=== PATIENT | female | born 1945 | race Caucasian/White ===

== ENCOUNTER → 2018-02-22 09:19 | Outpatient (CLI) | payer MEDICARE, OTHER, SELFPAY ==
--- NOTE | 2018-02-22 09:22 | DI.RAD.S_ITS ---
PROCEDURE: XR ACUTE ABDOMEN SERIES INDICATIONS: abdominal pain TECHNIQUE: One view chest and two views of the abdomen were acquired. COMPARISON: None. FINDINGS: Surgical changes and devices: None. Chest: Lungs are clear. Heart size is normal. No pleural effusions. No pneumoperitoneum. Abdomen: Large amount of stool projects throughout a prominent colon to the rectum. Bowel gas pattern is nonobstructive. Grossly no abnormal calculi. Circular structure projects over the lower pelvis which may represent a pessary. Bones: No suspicious bony lesions. IMPRESSION: Large amount of stool in a patulous colon. Bowel gas pattern is nonobstructive. Dictated by: Guille Mercado M.D. on 02/22/2018 at 9:00 Approved by: Guille Mercado M.D. on 02/22/2018 at 9:02
== END ==
PROVIDERS: PCP Family Medicine; Visit Provider Family Medicine
DX: R10.9 Unspecified abdominal pain (principal)
CPT/HCPCS: 74022

== ENCOUNTER → 2018-12-24 14:39 | Outpatient (CLI) | payer MEDICARE, OTHER, SELFPAY ==
--- NOTE | 2018-12-24 14:44 | DI.RAD.S_ITS ---
PROCEDURE: XR LUMBAR SPINE 2-3V INDICATIONS: Bilateral R>L hip/lower back pain TECHNIQUE: 3 views of the lumbar spine were acquired. COMPARISON: None. FINDINGS: Bones: 5 [id number] vertebrae are present. There is mild, grade 1 anterolisthesis of L4 on L5. Multilevel disc space narrowing and endplate osteophyte formation is present. Facet hypertrophy throughout the mid and lower lumbar spine is present. normal bony alignment. No vertebral body compression fractures. No suspicious bony lesions. Soft tissues: Overlying bowel gas pattern is normal. No suspicious soft tissue calcifications. IMPRESSION: Multilevel degenerative disc and facet disease. No acute fracture. No osseous lesion. If symptoms and/or clinical suspicion for pathology persist, further assessment with repeat, or advanced imaging (e.g., CT, MRI, or bone scan) may be helpful for further assessment. Dictated by: Amarilys Cassidy M.D. on 12/24/2018 at 15:41 Approved by: Amarilys Cassidy M.D. on 12/24/2018 at 15:41
--- NOTE | 2018-12-24 14:44 | DI.RAD.S_ITS ---
PROCEDURE: XR HIP W PEL IF DONE LT MIN 4V INDICATIONS: Bilateral R>L hip/lower back pain TECHNIQUE: AP pelvis with lateral view(s) of the bilateral hip(s). COMPARISON: None. FINDINGS: Bones: No fractures or dislocations. Pelvic ring appears intact. No suspicious bony lesions. Soft tissues: The visualized bowel gas pattern is normal. No suspicious soft tissue calcifications. IMPRESSION: No acute fracture. No osseous lesion. If symptoms and/or clinical suspicion for pathology persist, further assessment with repeat, or advanced imaging (e.g., CT, MRI, or bone scan) may be helpful for further assessment. Dictated by: Amarilys Cassidy M.D. on 12/24/2018 at 15:40 Approved by: Amarilys Cassidy M.D. on 12/24/2018 at 15:41
--- NOTE | 2018-12-24 14:44 | DI.RAD.S_ITS ---
PROCEDURE: XR SACRUM COCCYX MIN 2V INDICATIONS: Bilateral R>L hip/lower back pain TECHNIQUE: 3 views of the sacrum and coccyx acquired. COMPARISON: None. FINDINGS: Bones: No fractures or dislocations. No suspicious bony lesions. Mild periarticular osteophyte formation of the sacroiliac joints. No evidence of ankylosis. Soft tissues: Visualized bowel gas pattern is normal. No suspicious soft tissue densities. 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 Dictated by: Amarilys Cassidy M.D. on 12/24/2018 at 15:41 Approved by: Amarilys Cassidy M.D. on 12/24/2018 at 15:45
== END ==
PROVIDERS: Family Provider Family Medicine; PCP Family Medicine; Visit Provider Nurse Practitioner
DX: M25.551 Pain in right hip (principal); M25.552 Pain in left hip; M54.5 Low back pain; M51.36 Other intervertebral disc degeneration, lumbar region; M47.898 Other spondylosis, sacral and sacrococcygeal region
CPT/HCPCS: 72100; 72220; 73522

== ENCOUNTER → 2019-03-25 07:04 | Outpatient (CLI) | payer MEDICARE, OTHER, SELFPAY ==
[2019-03-25 07:58] LABS: Add Manual Diff / Slide Review NO; Basophils Absolute Auto 0 /uL (0-100); Basophils Percent Auto 0.8 % (0-2); Eosinophils Absolute Auto 100 /uL (0-450); Eosinophils Percent Auto 1.7 % (2-4); Hematocrit 39.6 % (36-46); Hemoglobin 13.3 g/dL (12.0-16.0); Lymphocytes Absolute Auto 1900 /uL (1100-4500); Mean Corpuscular HGB Conc 33.5 % (30-36); Mean Corpuscular Hemoglobin 29.5 PG (26-34); Monocytes Absolute Auto 500 /uL (0-900); Neutrophils Absolute Auto 2300 /uL (1500-7000); Neutrophils Percent Auto 48.5 % (50-75); Platelet Count 222 X10^3/uL (150-400); Red Cell Distribution Width 18.1 % (11.6-14.8); White Blood Cell Count 4.8 X10^3/uL (4.5-11.0)
[2019-03-25 08:12] LABS: Alanine Aminotransferase 20 IU/L (9-52); Albumin 4.1 g/dL (3.5-5.0); Albumin Globulin Ratio 1.6 (1.0-2.8); Alkaline Phosphatase 71 U/L (38-126); Aspartate Aminotransferase 25 IU/L (14-36); BUN Creatinine Ratio 17.5 (6-22); Bilirubin Total 0.5 mg/dL (0.2-1.3); Blood Urea Nitrogen 14 mg/dL (7-17); Calcium 9.5 mg/dL (8.4-10.2); Carbon Dioxide 33 mmol/L (22-32); Chloride 101 mmol/L (98-107); Cholesterol 261 mg/dL (140-199); Estimated Glomerular Filt Rate > 60.0 mL/min (>60); Globulin 2.6 g/dL (1.7-4.1); Glucose 88 mg/dL (80-110); HDL Cholesterol 74 mg/dL (40-60); HEMOLYSIS < 15 (0-50); LDL Cholesterol Calculated 164 mg/dL (<100); Potassium 4.3 mmol/L (3.4-5.1); Sodium 140 mmol/L (137-145); Total Protein 6.7 g/dL (6.3-8.2); Triglycerides 115 mg/dL (35-150)
== END ==
PROVIDERS: PCP Family Medicine; Visit Provider Family Medicine
DX: E78.5 Hyperlipidemia, unspecified (principal); I10 Essential (primary) hypertension; Z00.00 Encounter for general adult medical examination without abnormal findings
CPT/HCPCS: 36415; 80053; 80061; 85025

== ENCOUNTER 2019-04-17 16:36 | Emergency (ER) | payer OTHER, MEDICARE, SELFPAY ==
[2019-04-17 16:41] VITALS: BP 201/107; PULSE 72; RESP 14; TEMP 36.2; O2SAT 98; BMI 25.6
--- NOTE | 2019-04-17 19:28 | ED.WOUNDLAC ---
HPI - Wound/Laceration General Chief Complaint: Wound/Laceration Stated Complaint: DOG BITE TO FACE Time Seen by Provider: 04/17/19 19:28 Source: patient Mode of arrival: ambulatory Limitations: no limitations History of Present Illness HPI narrative: The patient sustained a laceration to her lower lip. She also has superficial injuries to both hands. Her 15 lb dog was attacked by a larger dogs. Her dog in trying to escape the large dogs bit her and agitation. This incident happened about 4:30 p.m. today. Her dog required surgery. The patient is now coming in for her evaluation. She has abrasion contusion to the lower lip. She has no intraoral injury. She has no other facial injury or neck injury. She has injuries to both hands is noted. Her tetanus is up-to-date. Related Data Home Medications Medication Instructions Recorded Confirmed Fish Oil (Fish Oil 500 MG Softgel) 500 mg PO #0 01/11/12 04/02/19 Resmed Airsense 10 CPAP #1 ea 02/06/19 04/02/19 diazepam 5 mg PO BEDTIME 04/17/19 04/17/19 triamterene-hydrochlorothiazid 0.5 tab PO DAILY 04/17/19 04/17/19 Previous Rx's Medication Instructions Recorded acyclovir 400 mg PO BID #60 tab 02/20/17 estradiol [Estring] 0.0075 mg VAGINAL Q 3 MONTHS #1 icr 09/12/17 sumatriptan 25 mg tablet 25 mg PO Q2H PRN #10 tab 02/08/18 fluoxetine 10 mg capsule 10 mg PO DAILY #30 cap 12/06/18 amitriptyline 10 mg tablet 5 mg PO DAILY #30 tab 03/18/19 Allergies Allergy/AdvReac Type Severity Reaction Status Date / Time No Known Drug Allergies Allergy Verified 04/17/19 16:41 Review of Systems Review of Systems ROS Unobtainable: All systems reviewed & are unremarkable except as noted in HPI and below Constitutional Denies fever(s), Denies lethargy and Denies weakness Eyes Comments: No injuries ENT Comments: ENT normal other than a lip laceration. Cardiovascular Denies chest pain Integumentary/Breasts Comments: Injuries to both hands from the bites Neurologic Denies weakness [facility] Medical History Herpes simplex with unspecified complication (Acute 03/24/14) Essential hypertension (Acute) Other and unspecified hyperlipidemia (Acute 02/29/12) IT band syndrome (Chronic) Insomnia (Chronic) Depression (Chronic 02/29/12) Cataract of both eyes (Resolved 06/10/14) Osteoporosis (Chronic 09/22/15) Obstructive sleep apnea syndrome (Chronic 01/04/17) Ankle pain (Chronic 2011) Anxiety (Chronic) Foot pain (Chronic) Hearing loss (Chronic) Hyperlipidemia (Chronic) Hypertension (Chronic) Migraines (Chronic ~1954) Osteoarthritis (Chronic ~1999) Osteopenia (Chronic ~2004) Shoulder pain (Chronic) Sleep apnea (Chronic 1994) Chicken pox (Resolved 1946) HSV-2 infection (Resolved ~1989) Hemorrhoids (Resolved ~1979) History of one miscarriage (Resolved 1982) History of rabies vaccination (Resolved) Measles (Resolved) Melanoma of nose (Resolved 2014) Mumps (Resolved ~1949) Rubella (Resolved) Surgical History Anesthesia (Resolved) History of cataract removal with insertion of prosthetic lens (Resolved 08/2014) History of cataract removal with insertion of prosthetic lens (Resolved 03/2015) History of ectopic (Resolved ~1979) History of melanoma excision (Resolved ~03/2015) Status post appendectomy (Resolved 03/1987) Status post colonoscopy (Resolved 05/2009) Status post dilation and curettage (Resolved 2005) Status post tubal ligation (Resolved 1983) Family History Grandfather Heart disease Grandmother Heart disease Brother COPD (chronic obstructive pulmonary disease) Father Colorectal cancer Mother No problems noted. Grandfather No problems noted. Grandmother No problems noted. Sister Rheumatoid arthritis Lung infection Social History Smoking Status: Never smoker Family History Grandfather Heart disease Grandmother Heart disease Brother COPD (chronic obstructive pulmonary disease) Father Colorectal cancer Mother No problems noted. Grandfather No problems noted. Grandmother No problems noted. Sister Rheumatoid arthritis Lung infection Social History Smoking Status: Never smoker Exam Initial Vital Signs Initial Vital Signs: Vital Signs Temperature 97.2 F L 04/17/19 16:41 Pulse Rate 72 04/17/19 16:41 Respiratory Rate 14 04/17/19 16:41 Blood Pressure 201/107 H 04/17/19 16:41 Pulse Oximetry 98 04/17/19 16:41 Const General: cooperative, healthy appearing and comfortable [facility] Head: normal to inspection, normocephalic and laceration (Lower lip injury) Mouth: lip abnormal (Superficial contusion/abrasion to the left mid lip.) and other (1cm vertical laceration to the lower mid lip, crossing the vermilion border) Eyes General: appearance normal, both eyes and all related structures Neck Neck: normal visual inspection Procedures Laceration Repair Laceration 1: Site: lip (Mid lower lip, crossing the vermilion border) Size (cm): 1 Description: linear Depth: simple, single layer Local Anesthetic: lidocaine 1% Amount of anesthesia used (mL): 1 Pre-repair: wound explored and irrigated extensively Skin layer closed with: nylon Size (cm): 5-0 Number of sutures: 1 Course Course Narrative: The patient has had a traumatic day. Her systolic blood pressure remains elevated. The blood pressure was discussed with her by her nurse. She tells the nurse that she monitor blood pressure at home and is generally 110-120 systolic. She is advised to follow up her doctor if her blood pressure remains elevated at home. Orders Ordered: Discontinued Medications Bacitracin (Bacitracin) 1 applic TOP NOW ONE Stop: 04/17/19 20:02 Vital Signs - 8 hr 04/17/19 16:41 04/17/19 19:40 Temperature 97.2 F L Pulse Rate 72 62 Respiratory Rate 14 16 Blood Pressure 201/107 H Blood Pressure [Left Arm] 201/108 H Pulse Oximetry 98 99 Discharge Plan Departure Patient Disposition: Home Clinical Impression: Elevated blood pressure reading Lip laceration Qualifiers: Encounter type: initial encounter Qualified Code(s): S01.511A - Laceration without foreign body of lip, initial encounter Discharge Date/Time: 04/17/19 20:24 Interventions: ED Discharge Assessment Last Done: 04/17/19 20:23 Instructions: DI for Laceration Repair Activity Restrictions/Additional Instructions: Take Tylenol or Advil as necessary for pain. Follow-up with her doctor about 5 days for suture removal. Follow up with your doctor if the blood pressure remains elevated. Return to ER as necessary. Prescriptions: No Action Fish Oil (Fish Oil 500 MG Softgel) 500 mg PO Qty: 0 RF: 0 acyclovir 400 MG tablet 400 mg PO BID Qty: 60 RF: 2 estradiol [Estring] 1 EACH ring 0.0075 mg Vaginal Q 3 MONTHS Qty: 1 RF: 3 amitriptyline 10 mg tablet 5 mg PO DAILY Qty: 30 RF: 0 sumatriptan succinate 25 mg tablet 25 mg PO Q2H PRN (Reason: migraine headache) Qty: 10 RF: 0 fluoxetine 10 mg capsule 10 mg PO DAILY Qty: 30 RF: 4 triamterene-hydrochlorothiazid 37.5-25 mg tablet 0.5 tab PO DAILY RF: 0 diazepam 5 mg tablet 5 mg PO BEDTIME RF: 0 Resmed Airsense 10 CPAP Qty: 1 RF: 0 Referrals: Fatuma Rosales DO [Primary Care Provider] -
[2019-04-17 19:40] VITALS: BP 201/108; PULSE 62; RESP 16; O2SAT 99
--- NOTE | 2019-04-17 19:44 | PC.NURSE ---
Dog bite to left lower lip. Pt UTD on immunizations, states dog is hers and is UTD on vaccinations. Dr. Wu at bedside for suture repair.
== END 2019-04-17 20:24 | disposition home or self-care (01) ==
PROVIDERS: Emergency Provider Emergency Medicine; PCP Family Medicine
DX: S01.511A Laceration without foreign body of lip, initial encounter (principal); R03.0 Elevated blood-pressure reading, without diagnosis of hypertension; W54.0XXA Bitten by dog, initial encounter
CPT/HCPCS: 12011; 99283

== ENCOUNTER → 2019-07-30 15:33 | Outpatient (CLI) | payer MEDICARE, OTHER, SELFPAY ==
--- NOTE | 2019-07-30 15:34 | DI.MG.S_ITS ---
BILATERAL DIGITAL SCREENING MAMMOGRAM 3D/2D WITH CAD: 07/30/2019 CLINICAL: Routine screening. Comparison is made to exams dated: 04/25/2017 mammogram, 08/30/2015 mammogram, and 08/14/2014 mammogram - [facility]. The tissue of both breasts is heterogeneously dense. This may lower the sensitivity of mammography. Current study was also evaluated with a Computer Aided Detection (CAD) system. There is a possible developing 0.4 cm oval low density asymmetry in the right breast anterior depth lateral region seen on the craniocaudal view only. This is more prominent. No other significant masses, calcifications, or other findings are seen in either breast. IMPRESSION: INCOMPLETE: NEEDS ADDITIONAL IMAGING EVALUATION The possible developing 0.4 cm oval low density asymmetry in the right breast resembles a lymph node and is indeterminate. Additional views with possible ultrasound are recommended. This exam was interpreted at Station ID: [id number]. NOTE: For mammograms, a report in lay terms will be sent to the patient. Approximately 15% of breast malignancies will not be visualized mammographically. In the management of a palpable breast mass, a negative mammogram must not discourage biopsy of a clinically suspicious lesion. Electronically Signed By: Benito Medina M.D. aty/:07/30/2019 17:04:08 letter sent: Additional Imaging Needed ACR BI-RADS Category 0: Incomplete 3340F
== END ==
PROVIDERS: PCP Family Medicine; Visit Provider Family Medicine
DX: Z12.31 Encounter for screening mammogram for malignant neoplasm of breast (principal)
CPT/HCPCS: 77063; 77067

== ENCOUNTER → 2019-08-21 14:40 | Outpatient (CLI) | payer MEDICARE, OTHER, SELFPAY ==
--- NOTE | 2019-08-21 | DI.MG.S_ITS ---
UNILATERAL RIGHT DIGITAL DIAGNOSTIC MAMMOGRAM 3D/2D WITH ADDITIONAL VIEWS: 08/21/2019 CLINICAL: Additional evaluation requested from prior study. Comparison is made to exams dated: 07/30/2019 mammogram, 04/25/2017 mammogram, and 08/30/2015 mammogram - [facility]. The tissue of right breast is heterogeneously dense. This may lower the sensitivity of mammography. There is a 0.6 cm oval low density focal asymmetry in the right breast anterior depth lateral region. No other significant masses or calcifications are seen in the breast. IMPRESSION: INCOMPLETE: NEEDS ADDITIONAL IMAGING EVALUATION Focal asymmetry in the right lateral breast is indeterminate. An ultrasound is recommended and will immediately follow. This exam was interpreted at Station ID: [id number]. NOTE: For mammograms, a report in lay terms will be sent to the patient. Approximately 15% of breast malignancies will not be visualized mammographically. In the management of a palpable breast mass, a negative mammogram must not discourage biopsy of a clinically suspicious lesion. Electronically Signed By: James Edwards M.D. slc/:08/21/2019 16:16:54 ACR BI-RADS Category 0: Incomplete 3340F
--- NOTE | 2019-08-21 14:43 | DI.US.S_ITS ---
LIMITED ULTRASOUND OF RIGHT BREAST: 08/21/2019 CLINICAL: Patient returns today to evaluate a density in the right breast. Comparison is made to exams dated: 08/21/2019 mammogram, 07/30/2019 mammogram, 04/25/2017 mammogram, 08/30/2015 mammogram, 08/14/2014 mammogram, and 07/31/2013 mammogram - [facility]. Color flow and real-time ultrasound of the right breast 9 o'clock region were performed. Colon scale images of the real-time examination were reviewed. There is a 0.3 cm x 0.5 cm x 0.4 cm oval bilobed cyst with a septated internal wall in the right breast at 9 o'clock 3 cm from the nipple. This oval cyst is hypoechoic with an echogenic boundary and posterior acoustic enhancement. This correlates with mammography findings. Color flow imaging demonstrates that there is no vascularity present. There also is a 2.3 cm x 1 cm x 1.1 cm oval enlarged lymph node with a circumscribed margin in the right axilla. This oval enlarged lymph node displays fatty hilum. No cortical thickening. Cortex measures 0.1 cm. IMPRESSION: PROBABLY BENIGN Complicated cyst in the right breast at 9 o'clock measuring 0.5 mm and corresponding to the focal asymmetry seen on mammogram is probably benign. Prominent lymph node in the right axilla is probably benign. A follow-up mammogram and an ultrasound in 6 months is recommended to demonstrate stability. Recommendation was conveyed to the patient by the director of market research. This exam was interpreted at Station ID: [id number]. Electronically Signed By: James Edwards M.D. [facility] [place]:08/21/2019 16:26:25 letter sent: Followup Recommended Ultrasound BI-RADS: 3 Probably benign
== END ==
PROVIDERS: PCP Family Medicine; Visit Provider Family Medicine
DX: R92.8 Other abnormal and inconclusive findings on diagnostic imaging of breast (principal); N60.01 Solitary cyst of right breast; R59.0 Localized enlarged lymph nodes
CPT/HCPCS: 76642; 77065; G0279

== ENCOUNTER → 2019-11-27 07:17 | Outpatient (CLI) | payer MEDICARE, OTHER, SELFPAY ==
[2019-11-27 09:21] LABS: Blood Urea Nitrogen 23 mg/dL (7-17); Calcium 9.3 mg/dL (8.4-10.2); Carbon Dioxide 32 mmol/L (22-32); Chloride 98 mmol/L (98-107); Estimated Glomerular Filt Rate 54.3 mL/min (>60); Glucose 94 mg/dL (80-110); HEMOLYSIS < 15 (0-50); Potassium 3.5 mmol/L (3.4-5.1); Sodium 140 mmol/L (137-145)
== END ==
PROVIDERS: PCP Family Medicine; Referring Provider Family Medicine; Visit Provider Family Medicine
DX: I10 Essential (primary) hypertension (principal)
CPT/HCPCS: 36415; 80048

== ENCOUNTER → 2020-02-03 10:12 | Outpatient (CLI) | payer MEDICARE, OTHER, SELFPAY ==
--- NOTE | 2020-02-03 10:13 | DI.MG.S_ITS ---
UNILATERAL RIGHT DIGITAL DIAGNOSTIC MAMMOGRAM 3D/2D SHORT-TERM FOLLOW-UP: 02/03/2020 CLINICAL: Patient returns for a 6 month follow up of the right breast. Comparison is made to exams dated: 08/21/2019 mammogram, 07/30/2019 mammogram, and 04/25/2017 mammogram - [facility]. The tissue of right breast is heterogeneously dense. This may lower the sensitivity of mammography. The oval low density asymmetry in the right breast anterior depth lateral region seen on the craniocaudal view on the prior mammogram is no longer seen. No other significant masses or calcifications are seen in the breast. IMPRESSION: NEGATIVE There is no mammographic evidence of malignancy. Return to annual mammogram screening schedule is recommended. This exam was interpreted at Station ID: [id number]. NOTE: For mammograms, a report in lay terms will be sent to the patient. Approximately 15% of breast malignancies will not be visualized mammographically. In the management of a palpable breast mass, a negative mammogram must not discourage biopsy of a clinically suspicious lesion. Electronically Signed By: Mindi Maldonado M.D. lk/:02/03/2020 10:43:07 letter sent: Normal Exam ACR BI-RADS Category 1: Negative 3341F
== END ==
PROVIDERS: PCP Family Medicine; Referring Provider Family Medicine; Visit Provider Family Medicine
DX: R92.8 Other abnormal and inconclusive findings on diagnostic imaging of breast (principal); N64.89 Other specified disorders of breast
CPT/HCPCS: 77065; G0279

== ENCOUNTER → 2020-06-03 14:42 | Outpatient (CLI) | payer MEDICARE, OTHER, SELFPAY | PROVIDERS: PCP Family Medicine; Referring Provider Family Medicine; Visit Provider Family Medicine | DX: M81.0 Age-related osteoporosis without current pathological fracture (principal); Z78.0 Asymptomatic menopausal state; Z82.62 Family history of osteoporosis | CPT/HCPCS: 77080 ==

== ENCOUNTER → 2020-10-07 15:08 | Outpatient (CLI) | payer MEDICARE, OTHER, SELFPAY ==
--- NOTE | 2020-10-07 15:10 | DI.RAD.S_ITS ---
PROCEDURE: XR LUMBAR SPINE 2-3V INDICATIONS: lower back pain no trauma TECHNIQUE: 3 views of the lumbar spine were acquired. COMPARISON: [facility], CR, XR LUMBAR SPINE 2-3V, 12/24/2018, 14:50. FINDINGS: Bones: No fracture identified. Partially visualized dextrocurvature of the spine. Multilevel degenerative endplate sclerosis and spurring. Diffuse facet arthropathy. Grade 2 anterolisthesis of L4 on L5. Severe narrowing of the L4-L5 and L5-S1 disc spaces. There is diffuse mild to moderate narrowing of the remaining lumbar disc spaces. Soft tissues: Overlying bowel gas pattern is normal. No suspicious soft tissue calcifications. IMPRESSION: Multilevel lumbar spondylosis most pronounced at L4-L5 and L5-S1 demonstrating interval progression since 12/24/18 Dictated by: Vinnie Mobley M.D. on 10/07/2020 at 15:29 Approved by: Vinnie Mobley M.D. on 10/07/2020 at 15:31
== END ==
PROVIDERS: PCP Family Medicine; Referring Provider Registered Nurse; Visit Provider Registered Nurse
DX: M54.5 Low back pain (principal); M47.816 Spondylosis without myelopathy or radiculopathy, lumbar region; M47.817 Spondylosis without myelopathy or radiculopathy, lumbosacral region
CPT/HCPCS: 72100

== ENCOUNTER → 2021-07-15 14:01 | Outpatient (CLI) | payer MEDICARE, OTHER, SELFPAY ==
--- NOTE | 2021-07-15 | DI.MG.S_ITS ---
BILATERAL DIGITAL SCREENING MAMMOGRAM 3D/2D WITH CAD: 07/15/2021 CLINICAL: Routine screening. Family history of breast cancer. Comparison is made to exams dated: 02/03/2020 mammogram, 08/21/2019 mammogram, 07/30/2019 mammogram, and 04/25/2017 mammogram - [facility]. The tissue of both breasts is heterogeneously dense. This may lower the sensitivity of mammography. Current study was also evaluated with a Computer Aided Detection (CAD) system. No significant masses, calcifications, or other findings are seen in either breast. There has been no significant interval change. IMPRESSION: NEGATIVE There is no mammographic evidence of malignancy. A 1 year screening mammogram is recommended. This exam was interpreted at Station ID: [id number]. NOTE: For mammograms, a report in lay terms will be sent to the patient. Approximately 15% of breast malignancies will not be visualized mammographically. In the management of a palpable breast mass, a negative mammogram must not discourage biopsy of a clinically suspicious lesion. Electronically Signed By: Courtney mncally/hank:07/15/2021 14:45:41 letter sent: Normal Exam ACR BI-RADS Category 1: Negative [id number]
== END ==
PROVIDERS: PCP Family Medicine; Referring Provider Family Medicine; Visit Provider Family Medicine
DX: Z12.31 Encounter for screening mammogram for malignant neoplasm of breast (principal); Z80.3 Family history of malignant neoplasm of breast
CPT/HCPCS: 77063; 77067

== ENCOUNTER → 2022-05-26 14:28 | Outpatient (CLI) | payer MEDICARE, OTHER, SELFPAY ==
--- NOTE | 2022-05-26 14:31 | DI.RAD.S_ITS ---
PROCEDURE: XR ANKLE RT MIN 3V INDICATIONS: Right ankle pain TECHNIQUE: 3 views of the ankle were acquired. COMPARISON: None. FINDINGS: Bones: Mild cortical irregularity and linear lucency along the medial tip of the medial malleolus.. Ankle mortise is normally aligned. No suspicious bony lesions. Soft tissues: No tibiotalar joint effusion. Achilles tendon appears normal. IMPRESSION: 1. Linear lucency and cortical irregularity along the tip of the medial malleolus and fracture cannot be excluded. Recommend correlation to point tenderness. Dictated by: Eduardo Leavitt [facility] Interpreted: Maryjane Salazar MD on 05/26/2022 at 14:54 Transcribed by: KARLI on 05/26/2022 at 14:57 Approved by: Maryjane Salazar M.D. on 05/26/2022 at 15:26
== END ==
PROVIDERS: PCP Pediatrics; Referring Provider Internal Medicine; Visit Provider Internal Medicine
DX: M25.571 Pain in right ankle and joints of right foot (principal)
CPT/HCPCS: 73610

== ENCOUNTER → 2022-06-03 07:59 | Outpatient (CLI) | payer MEDICARE, OTHER, SELFPAY ==
[2022-06-03 09:24] LABS: Hematocrit 38.7 % (36-46); Hemoglobin 13.2 g/dL (12.0-16.0); Mean Corpuscular Hemoglobin 32.1 PG (26-34); Mean Corpuscular Volume 94.5 fL (80-100); Platelet Count 219 X10^3/uL (150-400); Red Cell Distribution Width 13.2 % (11.6-14.8); White Blood Cell Count 4.9 X10^3/uL (4.5-11.0)
[2022-06-03 09:38] LABS: Alanine Aminotransferase 30 IU/L (<35); Albumin 4.1 g/dL (3.5-5.0); Albumin Globulin Ratio 1.3 (1.0-2.8); Alkaline Phosphatase 64 U/L (38-126); Aspartate Aminotransferase 36 IU/L (14-36); BUN Creatinine Ratio 15.3 (6-22); Bilirubin Total 0.4 mg/dL (0.2-1.3); Blood Urea Nitrogen 17 mg/dL (7-17); Calcium 9.2 mg/dL (8.4-10.2); Carbon Dioxide 34 mmol/L (22-32); Chloride 101 mmol/L (98-107); Cholesterol 287 mg/dL (140-199); Estimated Glomerular Filt Rate 52 mL/min (>60); Globulin 3.1 g/dL (1.7-4.1); Glucose 94 mg/dL (80-110); HDL Cholesterol 62 mg/dL (40-60); HEMOLYSIS < 15 (0-50); LDL Cholesterol Calculated 193 mg/dL (<100); Potassium 3.9 mmol/L (3.4-5.1); Sodium 140 mmol/L (137-145); Total Protein 7.2 g/dL (6.3-8.2); Triglycerides 160 mg/dL (35-150)
[2022-06-03 10:09] LABS: TSH w/ Reflex to FT4 2.71 uIU/mL (0.47-4.68)
== END ==
PROVIDERS: PCP Pediatrics; Referring Provider Internal Medicine; Visit Provider Internal Medicine
DX: E78.2 Mixed hyperlipidemia (principal); I10 Essential (primary) hypertension
CPT/HCPCS: 36415; 80053; 80061; 84443; 85027

== ENCOUNTER → 2022-08-05 14:19 | Outpatient (CLI) | payer MEDICARE, OTHER, SELFPAY ==
--- NOTE | 2022-08-05 14:20 | DI.MG.S_ITS ---
BILATERAL DIGITAL SCREENING MAMMOGRAM 3D/2D WITH CAD: 08/05/2022 CLINICAL: Routine screening. Family history of breast cancer. Comparison is made to exams dated: 07/15/2021 mammogram, 07/30/2019 mammogram, and 04/25/2017 mammogram - [facility]. Both breasts are heterogeneously dense, which may obscure small masses (category c / 51-75% glandular tissue). Current study was also evaluated with a Computer Aided Detection (CAD) system. No significant masses, calcifications, or other findings are seen in either breast. There has been no significant interval change. IMPRESSION: NEGATIVE There is no mammographic evidence of malignancy. A 1 year screening mammogram is recommended. Based on the Tyrer Cuzick model (a risk assessment model) the patient's lifetime risk is 5.4% and her 10 year risk is 5.4%. According to the ACR, ACS, and NCCN guidelines, an annual breast MRI exam along with mammogram is recommended if the patient's lifetime risk is 20% or greater. This exam was interpreted at Station ID: [id number]. NOTE: For mammograms, a report in lay terms will be sent to the patient. Approximately 15% of breast malignancies will not be visualized mammographically. In the management of a palpable breast mass, a negative mammogram must not discourage biopsy of a clinically suspicious lesion. Electronically Signed By: Courtney mcnally/hank:08/07/2022 19:11:35 letter sent: Normal Exam ACR BI-RADS Category 1: Negative 3341F
== END ==
PROVIDERS: Family Provider Internal Medicine; PCP Internal Medicine; Referring Provider Internal Medicine; Visit Provider Internal Medicine
DX: Z12.31 Encounter for screening mammogram for malignant neoplasm of breast (principal); Z80.3 Family history of malignant neoplasm of breast
CPT/HCPCS: 77063; 77067

== ENCOUNTER → 2022-09-28 07:53 | Outpatient (CLI) | payer MEDICARE, OTHER, SELFPAY ==
[2022-09-28 09:26] LABS: BUN Creatinine Ratio 17.3 (6-22); Blood Urea Nitrogen 17 mg/dL (7-17); Calcium 9.1 mg/dL (8.4-10.2); Carbon Dioxide 31 mmol/L (22-32); Chloride 97 mmol/L (98-107); Estimated Glomerular Filt Rate > 60 mL/min (>60); Glucose 88 mg/dL (80-110); HEMOLYSIS < 15 (0-50); Potassium 4.2 mmol/L (3.4-5.1); Sodium 138 mmol/L (137-145)
[2022-09-28 09:32] LABS: Creatinine Urine Random 91.6 mg/dL
[2022-09-28 09:39] LABS: Microalbumin Urine Random < 0.6 mg/dL (0-1.6)
== END ==
PROVIDERS: Family Provider Internal Medicine; PCP Internal Medicine; Referring Provider Internal Medicine; Visit Provider Internal Medicine
DX: N18.31 Chronic kidney disease, stage 3a (principal)
CPT/HCPCS: 36415; 80048; 82043; 82570

== ENCOUNTER → 2023-08-29 14:30 | Outpatient (CLI) | payer MEDICARE, OTHER, SELFPAY ==
--- NOTE | 2023-08-29 | DI.MG.S_ITS ---
BILATERAL DIGITAL SCREENING MAMMOGRAM 3D/2D WITH CAD: 08/29/2023 CLINICAL: Routine screening. Family history of breast cancer. Comparison is made to exams dated: 08/05/2022 mammogram, 07/15/2021 mammogram, and 07/30/2019 mammogram - . Both breasts are heterogeneously dense, which may obscure small masses (category c / 51-75% glandular tissue). Current study was also evaluated with a Computer Aided Detection (CAD) system. No significant masses, calcifications, or other findings are seen in either breast. There has been no significant interval change. IMPRESSION: NEGATIVE There is no mammographic evidence of malignancy. A 1 year screening mammogram is recommended. Based on the Tyrer Cuzick model (a risk assessment model) the patient's lifetime risk is 4.9% and her 10 year risk is 0.0%. According to the ACR, ACS, and NCCN guidelines, an annual breast MRI exam along with mammogram is recommended if the patient's lifetime risk is 20% or greater. This exam was interpreted at Station ID: [id number]. NOTE: For mammograms, a report in lay terms will be sent to the patient. Approximately 15% of breast malignancies will not be visualized mammographically. In the management of a palpable breast mass, a negative mammogram must not discourage biopsy of a clinically suspicious lesion. Electronically Signed By: Paul gabriel/hank:08/30/2023 09:24:20 letter sent: Normal Exam ACR BI-RADS Category 1: Negative [id number]
== END ==
PROVIDERS: Family Provider Internal Medicine; PCP Internal Medicine; Referring Provider Internal Medicine; Visit Provider Internal Medicine
DX: Z12.31 Encounter for screening mammogram for malignant neoplasm of breast (principal)
CPT/HCPCS: 77063; 77067

== ENCOUNTER → 2023-09-13 07:28 | Outpatient (CLI) | payer MEDICARE, OTHER, SELFPAY ==
[2023-09-13 07:51] LABS: Hematocrit 37.3 % (36-46); Hemoglobin 12.9 g/dL (12.0-16.0); Mean Corpuscular HGB Conc 34.6 % (30-36); Mean Corpuscular Hemoglobin 33.3 PG (26-34); Mean Corpuscular Volume 96.4 fL (80-100); Platelet Count 194 X10^3/uL (150-400); Red Blood Cell Count 3.87 X10^6/uL (4.0-5.2); Red Cell Distribution Width 12.9 % (11.6-14.8); White Blood Cell Count 5.2 X10^3/uL (4.5-11.0)
[2023-09-13 08:02] LABS: HEMOLYSIS < 15 (0-50); Iron 116 ug/dL (37-170)
[2023-09-13 08:06] LABS: BUN Creatinine Ratio 19.6 (6-22); Blood Urea Nitrogen 20 mg/dL (7-17); Calcium 9.4 mg/dL (8.4-10.2); Carbon Dioxide 31 mmol/L (22-32); Chloride 102 mmol/L (98-107); Cholesterol 197 mg/dL (140-199); Estimated Glomerular Filt Rate 57 mL/min (>60); Glucose 88 mg/dL (80-110); HDL Cholesterol 52 mg/dL (40-60); HEMOLYSIS < 15 (0-50); LDL Cholesterol Calculated 119 mg/dL (<100); Potassium 3.7 mmol/L (3.4-5.1); Sodium 138 mmol/L (137-145); Triglycerides 132 mg/dL (35-150)
[2023-09-13 08:16] LABS: Percent Iron Saturation 40 % (15-50); Total Iron Binding Capacity 289 ug/dL (265-497); Transferrin 244 mg/dL (206-381)
[2023-09-13 08:38] LABS: Ferritin 53 ng/mL (11-264)
[2023-09-13 08:52] LABS: Vitamin B12 690 pg/mL (239-931)
== END ==
PROVIDERS: Family Provider Internal Medicine; PCP Internal Medicine; Referring Provider Internal Medicine; Visit Provider Internal Medicine
DX: D64.9 Anemia, unspecified (principal); I10 Essential (primary) hypertension; E53.8 Deficiency of other specified B group vitamins; E78.2 Mixed hyperlipidemia
CPT/HCPCS: 36415; 80048; 80061; 82607; 82728; 83540; 83550; 85027

== ENCOUNTER → 2023-10-03 10:48 | Outpatient (CLI) | payer MEDICARE, OTHER, SELFPAY ==
--- NOTE | 2023-10-03 11:00 | DI.RAD.S_ITS ---
Bone Density Report Name: SEBASTIAN GONZALEZ Age: 77 Sex: Female Ethnicity: White Date of : 1945 Indication: osteopenia; Referring Provider: SONU BRANDT Study: Bone densitometry was performed. Exam Date: October 03, 2023 Accession number: [id number] Bone Density: Region BMD T-score Z-score Classification AP Spine(L1, L2, L3) 0.708 -2.8 -0.4 Osteoporosis Femoral Neck (Left) 0.526 -2.9 -0.7 Osteoporosis Total Hip (Left) 0.709 -1.9 0.0 Osteopenia Femoral Neck (Right) 0.569 -2.5 -0.4 Osteoporosis Total Hip (Right) 0.728 -1.8 0.1 Osteopenia Total Hip Mean 0.718 -1.9 0.1 Osteopenia World Health Organization criteria for BMD impression classify patients as: Normal (T-score at or above -1.0), Osteopenia (T-score between -1.0 and -2.5), or Osteoporosis (T-score at or below -2.5). 10-year Fracture Risk: FRAX not reported because: Some T-score for Spine Total or Hip Total or Femoral Neck at or below -2.5 Previous Exams: -- Region Exam Age BMD T-score BMD Change BMD Change Date g/cm2 vs Baseline vs Previous -- AP Spine (L1-L3) 10/03/2023 77 0.708 -2.8 -0.052 (-6.9%)# -0.052 (-6.9%)# 06/03/2020 74 0.760 -2.3 Total Hip(Left) 10/03/2023 77 0.709 -1.9 -0.055 (-7.2%)# -0.055 (-7.2%)# 06/03/2020 74 0.764 -1.5 Total Hip(Right) 10/03/2023 77 0.728 -1.8 -0.041 (-5.3%)# -0.041 (-5.3%)# 06/03/2020 74 0.769 -1.4 -- *Denotes significance at 95% confidence level, LSC for AP Spine = 0.022 g/cm2, LSC for Total Hip = 0.027 g/cm2 # Denotes dissimilar scan types or analysis methods Impression: The patient has osteoporosis, based on the Left Femoral Neck T-score. No significant bone loss was observed. Discussion: INCREASED RISK OF FRACTURE. BONE DENSITY IS UNDESIRABLY LOW AT ONE OR MORE SKELETAL SITES, CONSISTENT WITH POSTMENOPAUSAL OSTEOPOROSIS. This patient's lowest T-score meets the World Health Organization's (WHO) criteria for osteoporosis at one or more sites (T-score -2.5 or below). In untreated patients, the risk of osteoporotic fracture increases approximately two-fold for each 1.0 SD decrease in T-score. Low bone density is not the only risk factor for fracture; also consider factors such as patient's age, frailty or poor health, risk of falling, risk of injury, previous osteoporotic fracture, family history of osteoporosis, cigarette smoking, low body weight, etc. Not everyone with low bone mineral density has osteoporosis; osteomalacia and other metabolic bone disorders should also be considered. Patients who have osteoporosis should be evaluated for specific diseases and conditions (secondary causes) that may cause or contribute to bone loss. The [place] [employer]ocr[employer] (AACE) and National Osteoporosis Foundation (NOF) recommend pharmacologic intervention for all postmenopausal women whose T-score is in this range. The patient should follow a healthful lifestyle (good nutrition with adequate calcium and vitamin D, and appropriate weight-bearing exercise). Follow-Up: Consider a repeat BMD and Vertebral Fracture Assessment (VFA) exam in 2 years or sooner if medically necessary, to reassess this patient's status. Reported by: HITESH NUNES MD on 10/03/2023 12:03:00 PM.
== END ==
PROVIDERS: Family Provider Internal Medicine; PCP Internal Medicine; Referring Provider Internal Medicine; Visit Provider Internal Medicine
DX: M81.0 Age-related osteoporosis without current pathological fracture (principal)
CPT/HCPCS: 77080

== ENCOUNTER → 2024-09-08 09:59 | Outpatient (CLI) | payer MEDICARE, OTHER, SELFPAY ==
--- NOTE | 2024-09-08 10:04 | DI.MG.S_ITS ---
BILATERAL DIGITAL SCREENING MAMMOGRAM 3D/2D WITH CAD: 09/08/2024 CLINICAL: Routine screening. Family history of breast cancer. Comparison is made to exams dated: 08/29/2023 mammogram, 08/05/2022 mammogram, and 07/15/2021 mammogram - [facility]. The breasts are heterogeneously dense, which may obscure small masses (category c / 51-75% glandular tissue). Current study was also evaluated with a Computer Aided Detection (CAD) system. No significant masses, calcifications, or other findings are seen in either breast. There has been no significant interval change. IMPRESSION: NEGATIVE There is no mammographic evidence of malignancy. A 1 year screening mammogram is recommended. Based on the Tyrer Cuzick model (a risk assessment model) the patient's lifetime risk is 4.5% and her 10 year risk is 0.0%. According to the ACR, ACS, and NCCN guidelines, an annual breast MRI exam along with mammogram is recommended if the patient's lifetime risk is 20% or greater. This exam was interpreted at Station ID: [id number]. NOTE: For mammograms, a report in lay terms will be sent to the patient. Approximately 15% of breast malignancies will not be visualized mammographically. In the management of a palpable breast mass, a negative mammogram must not discourage biopsy of a clinically suspicious lesion. Electronically Signed By: Benito buenrostro/hank:09/08/2024 17:04:21 letter sent: Normal Exam ACR BI-RADS Category 1: Negative
[2024-09-08 11:44] LABS: Alanine Aminotransferase 19 IU/L (<35); Albumin 3.7 g/dL (3.5-5.0); Albumin Globulin Ratio 1.4 (1.0-2.8); Alkaline Phosphatase 59 U/L (38-126); Aspartate Aminotransferase 29 IU/L (14-36); BUN Creatinine Ratio 23.2 (6-22); Bilirubin Total 0.4 mg/dL (0.2-1.3); Blood Urea Nitrogen 23 mg/dL (7-17); Calcium 9.2 mg/dL (8.4-10.2); Carbon Dioxide 27 mmol/L (22-32); Chloride 102 mmol/L (98-107); Estimated Glomerular Filt Rate 59 mL/min (>60); Globulin 2.7 g/dL (1.7-4.1); Glucose 79 mg/dL (80-110); HEMOLYSIS 30 (0-50); Potassium 4.2 mmol/L (3.4-5.1); Sodium 133 mmol/L (137-145); Total Protein 6.4 g/dL (6.3-8.2)
== END ==
PROVIDERS: Family Provider Internal Medicine; PCP Internal Medicine; Referring Provider Internal Medicine; Visit Provider Internal Medicine
DX: Z12.31 Encounter for screening mammogram for malignant neoplasm of breast (principal); Z80.3 Family history of malignant neoplasm of breast; R92.333 Mammographic heterogeneous density, bilateral breasts; M81.0 Age-related osteoporosis without current pathological fracture; I10 Essential (primary) hypertension
CPT/HCPCS: 36415; 77063; 77067; 80053

== ENCOUNTER → 2025-02-06 10:56 | Outpatient (CLI) | payer MEDICARE, OTHER, SELFPAY ==
[2025-02-06 14:21] LABS: Cancer Antigen 125 < 5.5 U/mL (0-35)
== END ==
LOC: LAB 10:58
PROVIDERS: Family Provider Internal Medicine; PCP Internal Medicine; Referring Provider Obstetrics & Gynecology; Visit Provider Obstetrics & Gynecology
DX: R10.32 Left lower quadrant pain (principal)
CPT/HCPCS: 36415; 86304

== ENCOUNTER → 2025-09-28 11:50 | Outpatient (CLI) | payer MEDICARE, OTHER, SELFPAY ==
[2025-09-28 12:33] LABS: Hematocrit 39.0 % (36-46); Hemoglobin 13.8 g/dL (12.0-16.0); Mean Corpuscular HGB Conc 35.2 % (30-36); Mean Corpuscular Hemoglobin 34.1 PG (26-34); Mean Corpuscular Volume 96.8 fL (80-100); Platelet Count 206 X10^3/uL (150-400)
[2025-09-28 13:02] LABS: Alanine Aminotransferase 20 IU/L (<35); Albumin 4.3 g/dL (3.5-5.0); Albumin Globulin Ratio 1.5 (1.0-2.8); Alkaline Phosphatase 60 U/L (38-126); Blood Urea Nitrogen 19 mg/dL (7-17); Calcium 8.9 mg/dL (8.4-10.2); Carbon Dioxide 30 mmol/L (22-32); Chloride 100 mmol/L (98-107); Cholesterol 200 mg/dL (140-199); Estimated Glomerular Filt Rate 53 mL/min (>60); Globulin 2.8 g/dL (1.7-4.1); Glucose 92 mg/dL (70-99); HDL Cholesterol 59 mg/dL (40-60); HEMOLYSIS 17 (0-50); Potassium 3.9 mmol/L (3.4-5.1); Sodium 137 mmol/L (137-145); Total Protein 7.1 g/dL (6.3-8.2); Triglycerides 398 mg/dL (35-150)
[2025-09-28 13:32] LABS: TSH w/ Reflex to FT4 1.72 uIU/mL (0.47-4.68)
== END ==
PROVIDERS: PCP Internal Medicine; Referring Provider Internal Medicine; Visit Provider Internal Medicine
DX: I10 Essential (primary) hypertension (principal); M81.0 Age-related osteoporosis without current pathological fracture; E78.2 Mixed hyperlipidemia
CPT/HCPCS: 36415; 80053; 80061; 84443; 85027